=== PATIENT | female | born 1975 | race Caucasian/White ===

== ENCOUNTER 2016-12-15 07:26 | Emergency (ER) | payer MEDICAID ==
[2016-12-15] MEDS ORDERED: Sodium Chloride 0.9% 10 ML Syringe FLUSH PRN (07:37)
[2016-12-15] MEDS ORDERED: Sodium Chloride 0.9% 2.5 ML Syringe FLUSH PRN (07:37)
--- NOTE | 2016-12-15 07:43 | EDM.PDOC ---
ED HPI GENERAL MEDICAL PROBLEM - General Chief Complaint: Neurological Problem Stated Complaint: LUIS Time Seen by Provider: 12/15/16 07:31 - History of Present Illness INITIAL COMMENTS - FREE TEXT/NARRATIVE: HISTORY AND PHYSICAL: History of present illness: The patient is a 41-year-old female who has a history of seizure disorder [place] having a typical seizure. According to the patient she supposed to be taking Keppra 750 mg twice a day and she has not had her Keppra for at least 2-3 weeks. She says she ran out and she was currently trying to fly home to [place] when this seizure happened. She says she only gets seizures a couple of times a year when she is compliant with her medications. According to EMS when they arrived she was not postictal she was awake alert and talking to them and she had no trauma. The patient in the ER denies any complaints of any systemic problems except that her jaw hurts from clenching. She did not bite her tongue or lose bowel or bladder continence. She has no head neck or back pain no muscle or extremity pain. She's not had any recent fever chills nausea vomiting or diarrhea and has been eating normally. The patient does not have a local provider and is trying to get home when this occurred today Review of systems: As per history of present illness and below otherwise all systems reviewed and negative. Past medical history: As per history of present illness and as reviewed below otherwise noncontributory. Surgical history: As per history of present illness and as reviewed below otherwise noncontributory. Social history: No reported history of drug or alcohol abuse. Family history: As per history of present illness and as reviewed below otherwise noncontributory. Physical exam: General: Well-developed well-nourished female who is nontoxic and speaking clearly and easily in the ED. She moves all extremities without issues. Vital signs of a noted by me HEENT: Atraumatic, normocephalic, pupils reactive, negative for conjunctival pallor or scleral icterus, mucous membranes moist, throat clear, neck supple, nontender, trachea midline. There is no evidence of any facial swelling or palpable bony deformities and there are no midline step-offs tenderness defects of the cervical spine Lungs: Clear to auscultation, breath sounds equal bilaterally, chest nontender. Heart: S1S2, regular, negative for clicks, rubs, or JVD. Abdomen: Soft, nondistended, nontender. Negative for masses or hepatosplenomegaly. Negative for costovertebral tenderness. Pelvis: Stable nontender. Genitourinary: Deferred. Rectal: Deferred. Extremities: Atraumatic, negative for cords or calf pain. Neurovascular unremarkable. Full range of motion without defects or deficits Neuro: Awake, alert, oriented. Cranial nerves II through XII unremarkable. Cerebellum unremarkable. Motor and sensory unremarkable throughout. Exam nonfocal. Back: There are no midline step-offs tenderness defects of the thoracic or lumbar spine and no visible evidence of any soft tissue trauma Diagnostics: [] Therapeutics: IV Keppra I discussed with the patient doing a workup but the patient states that this is typical when she doesn't take her medications and she has agreed to receive a loading dose of Keppra and I will write her a prescription for her usual Keppra dose. I've advised her that if she continues to have seizures despite taking her Keppra that she would need to followup with her family doctor at home or one of our physicians. She is aware that she needs to be compliant with her meds Impression: Seizure with history of seizure disorder and medication noncompliance Definitive disposition and diagnosis as appropriate pending reevaluation and review of above. - Related Data Allergies Allergy/AdvReac Type Severity Reaction Status Date / Time No Known Allergies Allergy Verified 12/15/16 07:28 Home Meds: Home Meds levETIRAcetam [Keppra Xr] 1 tab PO BID 12/15/16 [History] ED ROS GENERAL - Review of Systems Review Of Systems: ROS reveals no pertinent complaints other than HPI. ED EXAM, GENERAL - Physical Exam Exam: See Below (See dictation) Course - Vital Signs Last Recorded V/S: Last Vital Signs Temp 36.6 C 12/15/16 07:29 Pulse 91 12/15/16 07:29 Resp 16 12/15/16 07:29 BP 146/94 H 12/15/16 07:29 Pulse Ox 99 12/15/16 07:29 - Orders/Labs/Meds Orders: Active Orders 24 hr Category Date Time Status Sodium Chloride 0.9% [Saline Flush] Med 12/15/16 07:37 Ordered 10 ml FLUSH ASDIRECTED PRN Sodium Chloride 0.9% [Saline Flush] Med 12/15/16 07:37 Ordered 2.5 ml FLUSH ASDIRECTED PRN levETIRAcetam [Keppra] 1,000 mg Med 12/15/16 07:37 Ordered Dextrose 5% in Water 100 ml IV ONETIME Saline Lock Insert [OM.PC] Stat Oth 12/15/16 07:37 Ordered Departure - Departure Time of Disposition: 07:42 Disposition: Home, Self-Care 01 Condition: good Clinical Impression: Seizure, Noncompliance with medication regimen Forms: ED Department Discharge Additional Instructions: The following information is given to patients seen in the emergency department who are being discharged to home. This information is to outline your options for follow-up care. We provide all patients seen in our emergency department with a follow-up referral. The need for follow-up, as well as the timing and circumstances, are variable depending upon the specifics of your emergency department visit. If you don't have a primary care physician on staff, we will provide you with a referral. We always advise you to contact your personal physician following an emergency department visit to inform them of the circumstance of the visit and for follow-up with them and/or the need for any referrals to a consulting specialist. The emergency department will also refer you to a specialist when appropriate. This referral assures that you have the opportunity for followup care with a specialist. All of these measure are taken in an effort to provide you with optimal care, which includes your followup. Under all circumstances we always encourage you to contact your private physician who remains a resource for coordinating your care. When calling for followup care, please make the office aware that this follow-up is from your recent emergency room visit. If for any reason you are refused follow-up, please contact the [facility] emergency department at and ask to speak to the emergency department charge nurse. [facility] Primary care- Internal Medicine and Family [address] [id number] Please take your Keppra as you should be taking and as prescribed. Push fluids rest and return to ER as needed as discussed. If you see any area please call and followup with one of our clinic physicians or go to your clinic/provider at home when you get there for followup - My Orders Last 24 Hours: My Active Orders 12/15/16 07:37 Sodium Chloride 0.9% [Saline Flush] 10 ml FLUSH ASDIRECTED PRN Sodium Chloride 0.9% [Saline Flush] 2.5 ml FLUSH ASDIRECTED PRN levETIRAcetam [Keppra] 1,000 mg Dextrose 5% in Water 100 ml IV ONETIME Saline Lock Insert [OM.PC] Stat - Assessment/Plan Last 24 Hours: My Active Orders 12/15/16 07:37 Sodium Chloride 0.9% [Saline Flush] 10 ml FLUSH ASDIRECTED PRN Sodium Chloride 0.9% [Saline Flush] 2.5 ml FLUSH ASDIRECTED PRN levETIRAcetam [Keppra] 1,000 mg Dextrose 5% in Water 100 ml IV ONETIME Saline Lock Insert [OM.PC] Stat
[2016-12-15 08:48] VITALS: BP 144/93
== END 2016-12-15 08:36 | disposition home or self-care (01) ==
LOC: EDSEX 07:26 → MW.ED 07:26
DX: G40.909 Epilepsy, unspecified, not intractable, without status epilepticus (principal); Z91.14 Patient's other noncompliance with medication regimen
CPT/HCPCS: 96365; 99284; J1953; J7060